=== PATIENT | female | born 1965 | race American Indian/Alaskan Native ===

== ENCOUNTER 2019-01-11 18:53 | Emergency (ER) | payer OTHER, SELFPAY ==
[2019-01-11 19:07] VITALS: BP 146/80; PULSE 68; RESP 20; TEMP 36.3; O2SAT 97
--- NOTE | 2019-01-11 19:25 | ED_ITS ---
HPI - Chest Pain General Chief Complaint: Chest Pain Stated Complaint: heaviness in diaphram Time Seen by Provider: 01/11/19 19:25 Source: patient Mode of arrival: ambulatory Limitations: no limitations History of Present Illness HPI narrative: 53-year-old female here for evaluation of right upper quadrant and epigastric abdominal pain. She states that she also feels like the pain is in her back and under her right breast. She is in the area here for a conference. She states she has not been eating as well as she normally does. She has known gallstones. Also has had an ulcer in the past. She initially th ought that this was reflux but it just was not getting any better. She came to the emergency department for evaluation because she could not get comfortable or earlier today. Related Data Home Medications Medication Instructions Recorded Confirmed albuterol sulfate [ProAir HFA] 1 - 2 pump INHALATION QID PRN 01/11/19 01/11/19 estradiol 0.5 mg PO DAILY 01/11/19 01/11/19 hydroxychloroquine [Plaquenil] 200 mg PO DAILY 01/11/19 01/11/19 ibuprofen-diphenhydramine cit 1 cap PO BEDTIME PRN 01/11/19 01/11/19 [Advil PM] levothyroxine 125 mcg PO DAILY 01/11/19 01/11/19 Previous Rx's Medication Instructions Recorded sucralfate [Carafate] 10 ml PO QID PRN #420 ml 01/11/19 Allergies Allergy/AdvReac Type Severity Reaction Status Date / Time No Known Drug Allergies Allergy Verified 01/11/19 19:11 Review of Systems Constitutional Denies fever(s) Cardiovascular Denies chest pain and Denies dyspnea Respiratory Denies dyspnea Gastrointestinal Gastrointestinal: Reports abdominal pain, Denies change in stool character, Reports nausea and Denies vomiting Musculoskeletal Denies myalgias and Denies arthralgias Integumentary/Breasts Denies rash Hematologic/Lymphatic Denies easy bleeding and Denies easy bruising Allergic/Immunologic Denies urticaria [facility] Medical History Cervical cancer (Acute) Hypothyroid (Acute Unknown) Lupus (Acute) Rheumatoid arthritis (Acute) Surgical History (Updated 01/11/19 @ 20:26 by Helen Broderick RN) Previous section (Acute) S/P complete hysterectomy (Acute ~2007) Social History Smoking Status: Never smoker Social History Smoking Status: Never smoker Exam Initial Vital Signs Initial Vital Signs: Vital Signs Temperature 97.4 F L 01/11/19 19:07 Pulse Rate 68 01/11/19 19:07 Respiratory Rate 20 01/11/19 19:07 Blood Pressure 146/80 H 01/11/19 19:07 Pulse Oximetry 97 01/11/19 19:07 Const General: cooperative, healthy appearing, comfortable, well developed, well groomed and No acute distress Orientation: alert, awake and oriented x3 HENMT Head: normal to inspection and normocephalic Resp Effort & Inspection: normal respiratory effort Auscultation: clear to auscultation bilaterally Cardio Rate: regular rate Rhythm: regular rhythm Pulses: radial pulses present GI Inspection: non-distended Palpation: soft, No firm and tender (Right upper quadrant positive Solorio sign) Skin Lesions: no lesions Rashes: no rashes Neuro General: alert, awake and oriented x3 Cognition: normal cognition Speech: speech normal Extrem General: normal to inspection and capillary refill normal Psych Appearance: grossly normal and well kempt Course Orders Ordered: ED Orders 01/11/19 19:11 EKG-12 Lead Stat Vital Signs - 8 hr 01/11/19 21:55 Pulse Rate 67 Respiratory Rate 17 Blood Pressure [Left Arm] 141/73 H Pulse Oximetry 96 MDM - Chest Pain Lab Data Attestation: I reviewed the patient's lab results. Result diagrams: 01/11/19 19:30 01/11/19 19:30 Lab Results 01/11/19 01/11/19 01/11/19 Range/Units 19:30 19:30 19:30 WBC 5.3 (4.5-11.0) X10^3/uL RBC 4.68 (4.0-5.2) X10^6/uL Hgb 14.3 (12.0-16.0) g/dL Hct 43.7 (36-46) % MCV 93.3 (80-100) fL MCH 30.5 (26-34) PG MCHC 32.6 (30-36) % RDW 13.3 (11.6-14.8) % Plt Count 178 (150-400) X10^3/uL Neut % (Auto) 40.9 L (50-75) % Lymph % (Auto) 48.0 H (25-40) % [place] % (Auto) 8.0 (3-14) % Eos % (Auto) 2.5 (2-4) % Baso % (Auto) 0.6 (0-2) % Neut # (Auto) 2200 (3902-6487) /uL Lymph # (Auto) 2500 (5612-9472) /uL [place] # (Auto) 400 (0-900) /uL Eos # (Auto) 100 (0-450) /uL Baso # (Auto) 0 (0-100) /uL Sodium 140 (137-145) mmol/L Potassium 3.7 (3.4-5.1) mmol/L Chloride 103 (98-107) mmol/L Carbon Dioxide 29 (22-32) mmol/L BUN 12 (7-17) mg/dL Creatinine 0.80 (0.52-1.04) mg/dL Estimated GFR > 60.0 (>60) mL/min BUN/Creatinine Ratio 15.0 (6-22) Glucose 95 (70-100) mg/dL Calcium 9.1 (8.4-10.2) mg/dL Total Bilirubin 0.9 (0.2-1.3) mg/dL AST 40 H (14-36) IU/L ALT 29 (9-52) IU/L Alkaline Phosphatase 61 (38-126) U/L Total Protein 8.1 (6.3-8.2) g/dL Albumin 4.3 (3.5-5.0) g/dL Globulin 3.8 (1.7-4.1) g/dL Albumin/Globulin Ratio 1.1 (1.0-2.8) Lipase 125 (23-300) U/L Imaging Data US - abdomen: Radiologist's impression: [address] [address] Ultrasound Report Signed Patient: Radha Hernandez MMR#: [id number] : 1965Acct:[id number] Age/Sex: 53 / FDate of Service: 01/11/19 Loc: ED Accession Number: [id number] Procedure: US abdomen complete Ordering Provider: Anthony Esqueda D.O. PROCEDURE: US ABDOMEN COMPLETE INDICATIONS: RIGHT UPPER QUADRANT PAIN TECHNIQUE: Real-time scanning was performed of the abdominal and retroperitoneal organs, with image documentation. COMPARISON: None. FINDINGS: Liver: Liver demonstrates diffusely increased echogenicity. Gallbladder: Edematous multiple small calculi within its lumen. No gallbladder wall thickening. Biliary ducts: Intrahepatic bile ducts are non-dilated. Extrahepatic bile duct caliber measures 6.3 mm. Normal is 6-7 mm or less in diameter, or 10 mm or less post-cholecystectomy. Pancreas: Not well-seen Spleen: Spleen is normal in size and homogeneous in echotexture. Kidneys: Kidneys are normal in size and echotexture. Right kidney measures 9.6 cm long; left kidney measures 11.4 cm long. No hydronephrosis or nephrolithiasis. No solid masses. Aorta: Visualized aorta is normal in caliber at less than 3 cm. Iliacs: Proximal common iliac arteries are normal in caliber at less than 2.5 cm. IVC: Intrahepatic inferior vena cava is patent. Miscellaneous: No free abdominal fluid. IMPRESSION: Cholelithiasis. No evidence of cholecystitis. Dictated by: Kimberly Martin M.D. on 01/11/2019 at 21:09 Approved by: Kimberly Martin M.D. on 01/11/2019 at 21:10 ECG Data Attestation: I personally reviewed and interpreted this ECG as follows: Prior ECG tracings: not available for review Interpretation: Sinus rhythm Ventricular rate is 72 Normal axis Normal QRS Normal QTC No ST T wave changes MDM Narrative Medical decision making narrative: Patient with epigastric and right upper quad rant abdominal pain. Labs unremarkable. Lipase unremarkable. EKG unremarkable. low suspicion for ACS. Patient with cholelithiasis however no signs of cholecystitis. No signs of pancreatitis. She states she has not been eating well recently. Has been eating a lot of fast food because she is in the area for a conference. I suspect that her symptoms are related to her cholelithiasis. There is no indication for admission to the hospital or surgical consultation. Also sent home with Ivy Oneal the patient states that she does have history of reflux and because of her epigastric pain this could be contributing as well. We discussed return precautions. The patient expressed understanding and agreement plan. Discharge Plan Departure Patient Disposition: Home Clinical Impression: Cholelithiasis Qualifiers: Cholelithiasis location: gallbladder Cholecystitis presence: without cholecystitis Biliary obstruction: without biliary obstruction Qualified Code(s): K80.20 - Calculus of gallbladder without cholecystitis without obstruction Discharge Date/Time: 01/11/19 22:00 Interventions: ED Discharge Assessment Last Done: 01/11/19 22:33 Instructions: Gallstones (Alternative Therapy), Gallstones Activity Restrictions/Additional Instructions: Recommend you follow up with your primary care doctor when you return home. Eat a bland diet. Take the medications as directed. Return to the emergency department for any new or worsening symptoms Prescriptions: New sucralfate [Carafate] 100 mg/mL suspension 10 ml PO QID PRN (Reason: abdominal pain) Qty: 420 RF: 0 No Action levothyroxine 125 mcg tablet 125 mcg PO DAILY RF: 0 estradiol 0.5 mg Tablet 0.5 mg PO DAILY RF: 0 hydroxychloroquine [Plaquenil] 200 mg Tablet 200 mg PO DAILY RF: 0 albuterol sulfate [ProAir HFA] 90 mcg/actuation HFA aerosol inhaler 1 - 2 pump Inhalation QID PRN (Reason: Wheezing) RF: 0 ibuprofen-diphenhydramine cit [Advil PM] 200-38 mg Tablet 1 cap PO BEDTIME PRN (Reason: Insomnia) RF: 0
[2019-01-11 19:42] LABS: Add Manual Diff / Slide Review NO; Basophils Absolute Auto 0 /uL (0-100); Basophils Percent Auto 0.6 % (0-2); Eosinophils Absolute Auto 100 /uL (0-450); Eosinophils Percent Auto 2.5 % (2-4); Hematocrit 43.7 % (36-46); Hemoglobin 14.3 g/dL (12.0-16.0); Lymphocytes Absolute Auto 2500 /uL (1100-4500); Mean Corpuscular HGB Conc 32.6 % (30-36); Mean Corpuscular Hemoglobin 30.5 PG (26-34); Mean Corpuscular Volume 93.3 fL (80-100); Monocytes Absolute Auto 400 /uL (0-900); Neutrophils Absolute Auto 2200 /uL (1500-7000); Neutrophils Percent Auto 40.9 % (50-75); Platelet Count 178 X10^3/uL (150-400); Red Blood Cell Count 4.68 X10^6/uL (4.0-5.2); Red Cell Distribution Width 13.3 % (11.6-14.8); White Blood Cell Count 5.3 X10^3/uL (4.5-11.0)
--- NOTE | 2019-01-11 19:44 | DI.US.S_ITS ---
PROCEDURE: US ABDOMEN COMPLETE INDICATIONS: RIGHT UPPER QUADRANT PAIN TECHNIQUE: Real-time scanning was performed of the abdominal and retroperitoneal organs, with image documentation. COMPARISON: None. FINDINGS: Liver: Liver demonstrates diffusely increased echogenicity. Gallbladder: Edematous multiple small calculi within its lumen. No gallbladder wall thickening. Biliary ducts: Intrahepatic bile ducts are non-dilated. Extrahepatic bile duct caliber measures 6.3 mm. Normal is 6-7 mm or less in diameter, or 10 mm or less post-cholecystectomy. Pancreas: Not well-seen Spleen: Spleen is normal in size and homogeneous in echotexture. Kidneys: Kidneys are normal in size and echotexture. Right kidney measures 9.6 cm long; left kidney measures 11.4 cm long. No hydronephrosis or nephrolithiasis. No solid masses. Aorta: Visualized aorta is normal in caliber at less than 3 cm. Iliacs: Proximal common iliac arteries are normal in caliber at less than 2.5 cm. IVC: Intrahepatic inferior vena cava is patent. Miscellaneous: No free abdominal fluid. IMPRESSION: Cholelithiasis. No evidence of cholecystitis. Dictated by: Kimberly Martin M.D. on 01/11/2019 at 21:09 Approved by: Kimberly Martin M.D. on 01/11/2019 at 21:10
[2019-01-11 19:55] LABS: Alanine Aminotransferase 29 IU/L (9-52); Albumin 4.3 g/dL (3.5-5.0); Albumin Globulin Ratio 1.1 (1.0-2.8); Alkaline Phosphatase 61 U/L (38-126); Aspartate Aminotransferase 40 IU/L (14-36); Bilirubin Total 0.9 mg/dL (0.2-1.3); Blood Urea Nitrogen 12 mg/dL (7-17); Calcium 9.1 mg/dL (8.4-10.2); Carbon Dioxide 29 mmol/L (22-32); Chloride 103 mmol/L (98-107); Estimated Glomerular Filt Rate > 60.0 mL/min (>60); Globulin 3.8 g/dL (1.7-4.1); Glucose 95 mg/dL (70-100); HEMOLYSIS < 15 (0-50); Potassium 3.7 mmol/L (3.4-5.1); Sodium 140 mmol/L (137-145); Total Protein 8.1 g/dL (6.3-8.2)
[2019-01-11 20:00] VITALS: BP 120/53; PULSE 70; RESP 15; O2SAT 98
[2019-01-11 20:04] LABS: Lipase 125 U/L (23-300)
[2019-01-11 21:55] VITALS: BP 141/73; PULSE 67; RESP 17; O2SAT 96
== END 2019-01-11 22:00 | disposition home or self-care (01) ==
PROVIDERS: Emergency Provider Emergency Medicine
DX: K80.20 Calculus of gallbladder without cholecystitis without obstruction (principal)
CPT/HCPCS: 76700; 80053; 83690; 85025; 93005; 93010; 99282; 99285